=== PATIENT | female | born 1980 | race Caucasian/White ===

== ENCOUNTER → 2018-07-04 08:48 | Outpatient (CLI) | payer OTHER, SELFPAY ==
[2018-07-03 13:33] VITALS: BMI 39.4
--- NOTE | 2018-07-04 08:49 | US_ITS ---
STUDY: ABDOMINAL ULTRASOUND REASON FOR EXAM: Female, 38 years old. Nausea TECHNIQUE: Transabdominal ultrasound was performed with real-time and static godwin scale imaging. TECHNICAL QUALITY: Adequate. COMPARISON: November 29, 2016 CT abdomen and pelvis FINDINGS: Liver: The liver measures 14 cm. There is normal echogenicity of the liver. The bile ducts are within normal limits. There is hepatic color flow. The direction of portal flow is hepatopetal. There is no demonstrated mass lesion. Portal vein measurement: Gallbladder: Surgically absent Common Bile Duct (C.B.D.): The common bile duct measures 4 mm. Pancreas: Normal size of the head, body of the pancreas. There is normal echogenicity of the pancreas. There is no demonstrated pancreatic mass or cyst. Pancreatic tail not well visualized. Spleen: Normal size of the spleen. The spleen measures 9 cm. Right Kidney: Normal size of the right kidney. The right kidney measures 10 cm. Normal renal cortex. The right cortex measures 1.2 cm. There is no demonstrated renal mass or cyst. There is no right hydronephrosis. Left Kidney: Normal size of the left kidney. The left kidney measures 10.7 cm. Normal renal cortex. The left cortex measures 2.3 cm. There is no demonstrated renal mass or cyst. There is no left hydronephrosis. Aorta: Measures up to 2.1 cm. I.V.C.: The IVC is patent. There is no ascites. US/Abdomen Complete IMPRESSION: No acute disease Electronically Signed: Matt Talbert MD at 20:04 EDT , Service support ,
[2018-07-04 10:36] LABS: AST(SGOT) 13 U/L (15-37); Alanine Aminotransfer ALT/SGPT 18 U/L (13-56); Albumin, Serum 3.5 g/dL (3.2-5.0); Alkaline Phosphatase 74 U/L (45-117); Amylase 41 U/L (25-115); Bilirubin, Direct 0.08 mg/dL (0.00-0.30); Globulin 3.5 g/dL (2.2-4.2); Lipase 121 U/L (73-393)
== END ==
PROVIDERS: Referring Provider Surgery; Visit Provider Surgery
DX: R11.2 Nausea with vomiting, unspecified (principal)
CPT/HCPCS: 36415; 76700; 80076; 82150; 83690

== ENCOUNTER 2018-07-24 07:35 | Day surgery (SDC) | payer OTHER, SELFPAY ==
[2018-07-03 13:33] VITALS: BMI 39.4
[2018-07-24 08:07] VITALS: BP 106/80; PULSE 106; RESP 18; TEMP 36.8; O2SAT 99; BMI 40.4
[2018-07-24 08:12] LABS: Internal QC Validated? YES +Cl - CLEAR BKGD; Pregnancy, Urine Negative Negative
--- NOTE | 2018-07-24 09:00 | EGD_PTH ---
PATIENT: PAWAN TELLEZ LOC: EN U#:[id number] AGE/SX: 38/F ROOM: RE07/24/[address]: Dr. Ronen Schmidt MD : 1980 BED: DIS: 07/24/2018 SPEC #: [id number] RECD: 07/24/18 11:38 STATUS: PIA BRYAN #: [id number] SHALA: 07/24/18 09:[address]: Ronen Schmidt DEPT: SURGICAL PATHOLOGY RECD BY: Ritchie Wolfe ENTERED: 07/24/18 11:50 SP TYPE: EGD BIOPSY OTHR DR: Out of Town Doctor Tissues: A - Duodenum, NOS B - Gastric mucous membrane C - Stomach, NOS D - Esophageal mucous membrane Procedures: Special Stain Group II Surgery Specimen Level IV Alcian Blue/PAS (control) HEADER OPERATION: [place] PRE-OP DIAGNOSIS: History of intractable nausea TISSUE SUBMITTED: A - Biopsy duodenum, B - Biopsy gastric antrum, H. pylori and path, C - Biopsy body of stomach polyp, D - Biopsy distal esophagus MICROSCOPIC DIAGNOSIS A. Duodenum, biopsy: Fragments of duodenal mucosa, no pathologic diagnosis. B. Gastric antrum, biopsy: Mild gastritis. See microscopic description and comment. C. Body of stomach polyp, biopsy: Consistent with fundic gland polyp. D. Distal esophagus, biopsy: Fragments of gastroesophageal mucosa with chronic inflammation. Intestinal metaplasia (goblet cell metaplasia) is not identified. See comment. SJ:aubrey 07/27/18 COMMENT B. The results of immunohistochemistry for Helicobacter pylori will be reported separately ([id number]). D. Alcian blue/PAS stain with matched control is used in the evaluation of the specimen. The specimen predominantly consists of squamous mucosa. MICROSCOPIC DESCRIPTION Slides are reviewed. B. The specimen shows fragments of gastric mucosa with chronic inflammatory cell infiltrates in the lamina propria consisting of lymphocytes and plasma cells, consistent with mild chronic gastritis. GROSS DESCRIPTION A - Received in fixative is one container labeled with the patient's name and designated biopsy duodenum. The specimen consists of multiple irregular fragments of light sheets soft tissue that in aggregate measure 1.5 x 0.3 x 0.1 cm. The specimen is totally submitted in one cassette. B - Received in fixative is one container labeled with the patient's name and designated biopsy gastric antrum. The specimen consists of one irregular fragment of light sheets soft tissue that measures 0.5 x 0.5 x 0.1 cm. The specimen is totally submitted in one cassette. C - Received in fixative is one container labeled with the patient's name and designated biopsy body of stomach polyp. The specimen consists of one irregular fragment of light sheets soft tissue that measures 0.2 x 0.1 x 0.1 cm. The specimen is totally submitted in one cassette. D -Received in fixative is one container labeled with the patient's name and designated biopsy distal esophagus. The specimen consists of multiple irregular fragments of light sheets soft tissue that in aggregate measure 0.7 x 0.2 x 0.1 cm. The specimen is totally submitted in one cassette. / SJ:rg 07/24/18 TC:3 CPT: 94115 x4, 72751
--- NOTE | 2018-07-24 09:00 | IMM_PTH ---
PATIENT: PAWAN TELLEZ LOC: EN U#:[id number] AGE/SX: 38/F ROOM: RE07/24/[address]: Dr. Ronen Schmidt MD : 1980 BED: DIS: 07/24/2018 SPEC #: [id number] RECD: 07/24/18 12:47 STATUS: PIA BRYAN #: [id number] SHALA: 07/24/18 09:[address]: Ronen Schmidt DEPT: IMMUNOHISTOCHEMISTRY RECD BY: Radha Nieto ENTERED: 07/24/18 12:47 SP TYPE: IMMUNO OTHR DR: Out of Town Doctor Tissues: B - Stomach, NOS Procedures: H Pylori (initial) PHYSICIAN & INSTITUTION [place] [id number] SPECIMEN INFORMATION: Tissue Source: B - Gastric antrum biopsy Clinical Info: History of intractable nausea Specimen Number: [id number] CPT code: 30223 METHODOLOGY: Deparaffinized sections of prefer/formalin-fixed tissue or PAP/DQ stained slides are incubated with monoclonal/polyclonal antibodies/oligonucleotide probes. Localization is made via biotin free immunoperoxidase method. Appropriate controls are performed and reacted as expected. Results on target cell population are indicated in the following table: RESULTS: ANTIBODY / CLONE RESULT Block B H Pylori (polyclonal) negative These tests were developed and their performance characteristics determined by [facility]. They may not have been cleared or approved by the U.S. Food and Drug Administration. The FDA has determined that such clearance or approval is not necessary. INTERPRETATION: B. Gastric antrum, biopsy: Negative for Helicobacter pylori organisms. SJ:aubrey 07/28/18
[2018-07-24 10:09] VITALS: BP 106/80; BP 97/61; PULSE 85; RESP 16; TEMP 36.3; O2SAT 94
--- NOTE | 2018-07-24 10:11 | OP.ENDO_ITS ---
07/24/2018 Out Of [facility] Doctor Re : Upper GI endoscopy procedure for Jessica Mccarthy Dear [facility] Doctor This procedure was performed on Tuesday, July 24, 2018. My impressions and recommendations are as follows: Impressions : - Normal esophagus. Small hiatal hernia. - Z-line regular, 39 cm from the incisors. Biopsied. - A few gastric polyps. Resected and retrieved. - Erythematous mucosa in the antrum. Biopsied. - Normal examined duodenum. Biopsied. Recommendations : - Discharge patient to home. - Resume previous diet. - Continue present medications. - Telephone my office for pathology results in 1 week. My findings are described in the full procedure note, which is enclosed. If I can be of further assistance, please feel free to contact me at Doctor phone number(s): Work: . Sincerely, Ronen Schmidt MD 07/24/2018 10:11:13 AM This report has been signed electronically.
[2018-07-24 10:15] VITALS: BP 104/62; BP 106/80; PULSE 85; RESP 16; O2SAT 96
[2018-07-24 10:20] VITALS: BP 104/65; BP 106/80; PULSE 85; RESP 16; O2SAT 100
[2018-07-24 10:25] VITALS: BP 106/69; BP 106/80; PULSE 75; RESP 106; TEMP 35.9; O2SAT 97
[2018-07-24 11:00] VITALS: BP 106/80
== END 2018-07-24 11:00 | disposition home or self-care (01) ==
LOC: EN 07:37 → AC 07:38
PROVIDERS: Anesthesiology; Visit Provider Surgery
PROC: 0DJ08ZZ Inspection of Upper Intestinal Tract, Via Natural or Artificial Opening Endoscopic (ICD-10-PCS; CPT 43235; principal; 2018-07-24 08:55)
DX: K20.9 Esophagitis, unspecified (principal); K29.70 Gastritis, unspecified, without bleeding; K44.9 Diaphragmatic hernia without obstruction or gangrene; K31.7 Polyp of stomach and duodenum; Z79.899 Other long term (current) drug therapy; Z87.11 Personal history of peptic ulcer disease; Z85.828 Personal history of other malignant neoplasm of skin
CPT/HCPCS: 43239; 81025; 88305; 88313; 88342; J7120; J2405

== ENCOUNTER 2018-09-23 08:19 | Emergency (ER) | payer OTHER, SELFPAY ==
[2018-09-23 08:20] VITALS: BP 126/78; PULSE 115; RESP 20; TEMP 36.9; O2SAT 100; BMI 40.1
--- NOTE | 2018-09-23 08:22 | CT_ITS ---
STUDY: CT ABDOMEN AND PELVIS WITH CONTRAST REASON FOR EXAM: Female, 38 years old. Right lower quadrant pain. RADIATION DOSAGE (If Supplied By Facility): CTDIvol = ( 14.31 ) mGy, DLP = ( 1112.45 ) mGycm TECHNIQUE: Transaxial images were obtained from the dome of the diaphragm to the symphysis pubis without oral contrast. 100 IV Isovue 370 was administered. Sagittal and coronal images were reconstructed. Individualized dose optimization techniques were used for this CT. COMPARISON: Comparison is made with prior study November 29, 2016. FINDINGS: The visualized lung bases are unremarkable. The visualized portions of the heart are within normal limits. Normal liver. There are surgical clips in the gallbladder fossa consistent with a prior cholecystectomy. Normal spleen. Normal pancreas. Normal bilateral adrenal glands. Normal right kidney. Normal left kidney. Normal visualized stomach. Normal small intestine. Normal colon. The appendix is visualized and appears normal. Normal abdominal aorta. Normal inferior vena cava. Normal retroperitoneum. Normal urinary bladder. Follicles are seen in the left ovary. Normal abdominal wall. Normal osseous structures. CT/Abdomen/Pelvis W IV Cont ONLY IMPRESSION: Follicles are seen in the left ovary. Electronically Signed: Pranav Rasheed, at 9:20 EDT , Service support ,
--- NOTE | 2018-09-23 08:28 | ED.DCSUM_ITS ---
History of Present Illness Chief Complaint: Abd Pain Informant: Patient, [employer]ed [employer] Repairer Onset: Today Context: - - Noted upon awakening Timing: Continuous Quality: Pain Location: Proximity McBurney's point Current Severity: Mild Maximum Severity: Moderate Worsened by: Walking Relieved by: Supine better Associated Symptoms: Nausea and loss of appetite Narrative: Patient is a 38-year-old female who presents by ambulance with right lower quadrant abdominal pain that is in the proximity McBurney's point. She noted discomfort this morning upon awakening. She reports nausea and has no appetite. Normally has breakfast. She did not have breakfast this morning. She denies fever or chills. She denies dysuria, frequency, urgency or hematuria. Last normal menstrual cycle 2 weeks ago. Patient states she is not sexually active. She is never been . She does have history of renal/ureteral lithiasis. She states this is different. She denies vaginal bleeding, vaginal discharge. There is no history of ovarian cyst or endometriosis. She denies back pain. Prior similar symptoms: No Recent Illness/Hospitalization: No - Past Medical History (1) Gastric ulcer Status: Acute (2) Hiatal hernia Status: Acute (3) Migraines Status: Acute (4) Pseudotumor cerebri Status: Acute (5) Restless leg syndrome Status: Acute Past Medical History - Allergies and Home Meds Allergies/Adverse Reactions: Allergies nitrofurantoin [From Macrobid] Allergy (Unknown, Verified 09/23/18 08:26) Unknown oxycodone [From Percocet] Allergy (Unknown, Verified 09/23/18 08:26) Unknown prednisone Allergy (Unknown, Verified 09/23/18 08:26) Unknown scopolamine Allergy (Unknown, Verified 09/23/18 08:26) Unknown ketorolac tromethamine [From Toradol] Allergy (Verified 09/23/18 08:26) Other morphine Allergy (Verified 09/23/18 08:26) Other ropinirole HCl [From Requip] Allergy (Verified 09/23/18 08:26) Other sumatriptan [From Imitrex] Allergy (Verified 09/23/18 08:26) Shortness of breath sumatriptan succinate [From Imitrex] Allergy (Verified 09/23/18 08:26) Shortness of breath Latex, Natural Rubber Adverse Reaction (Verified 09/23/18 08:26) Rash Primary Care Physician: [facility] Doctor,Out of [Primary Care Provider] - Prior records reviewed: Yes Surgical History: cholecystectomy Lives: Alone Smoking Status: Never smoker Alcohol: None Drugs: None Review of Systems General: Denies: Chills, Fever, Malaise, Sweats Eyes: Denies: Blurred Vision - bilaterally ENT: Denies: Bilateral ear pain, Rhinorrhea, Sore throat Cardiovascular: Denies: Chest pain, Palpitations Respiratory: Denies: Dyspnea, Cough, Dyspnea on exertion Gastrointestinal: Reports: Abdominal pain, Nausea. Denies: Vomiting, Diarrhea, Constipation, Melena, Hematochezia, -, - Genitourinary: Denies: Dysuria, Hematuria, Frequency Musculoskeletal: Denies: Myalgias, Arthralgias, Neck pain, Back pain, Swelling, Extremity Pain, -, - Skin: Denies: Rash, Wounds Neurological: Denies: Headache, Weakness, Numbness Hematologic: Denies: Easy bruising, Easy bleeding Physical Exam Vital Signs/Narrative: Vital Signs Temp Pulse Resp BP Pulse Ox 09/23/18 08:20 98.4 F 115 H 20 H 126/78 H 100 Inital Vital Signs reviewed: Yes General: Well nourished, Well developed, Obese, No Acute Distress Head: Normocephalic, Atraumatic Eyes: Perrl, EOMI. Negative for: Pale conjunctiva, Scleral icterus, - ENT: Moist mucous membranes, No rhinorrhea Neck: Supple, Nontender, No lymphadenopathy, No JVD, - Cardiovascular: Regular rhythm, No murmurs, Normal S1, Normal S2, Tachycardia Respiratory: No distress, CTA bilaterally, Chest nontender Abdomen: Soft, Nondistended, No masses, Tender, Guarding, Rebound tenderness - Patient does have percussion tenderness., Hypoactive bowel sounds. Negative for: Nontender, Normal bowel sounds, Ventral hernia, Umbilical hernia, Rovsig's sign Rectal: Deferred Back: Nontender, Normal Inspection. Negative for: CVA tenderness Extremities: Nontender, No edema Skin: Normal color, No rash, No Trauma. Negative for: Cyanosis, Diaphoresis, Jaundice Neurological: Alert, Oriented x3, Cranial nerves II-XII grossly intact, Normal Strength, Normal Sensation Psychological: - - Affect is flat Diagnostic/Tx/Re-eval Impressions Abdomen/Pelvis CT 06/12/19 08:22 IMPRESSION: Follicles are seen in the left ovary. Electronically Signed: Pranav Rasheed, at 9:20 EDT , Service support , 09/23/18 08:22 Abdomen/Pelvis W IV Cont ONLY [CT] Stat Laboratory Results 09/23/18 09/23/18 09/23/18 08:25 08:25 09:34 WBC 6.7 RBC 4.31 Hgb 12.4 Hct 39.0 MCV 90.5 MCH 28.8 MCHC 31.8 L RDW 14.1 RDW Differential 46.5 H Plt Count 281 MPV 9.9 Immature Gran % (Auto) 0.000 Neut % (Auto) 59.1 Lymph % (Auto) 25.7 Union % (Auto) 13.2 H Eos % (Auto) 1.9 Baso % (Auto) 0.1 Absolute Neuts (auto) 4.0 Absolute Lymphs (auto) 1.73 Total Counted Not Reportable Sodium 145 Potassium 3.5 Chloride 116 H Carbon Dioxide 20.0 L Anion Gap 9 BUN 18 Creatinine 0.80 Estim Creat Clear Calc 83.14 Est GFR (MDRD) Af Amer 104 Est GFR (MDRD) Non-Af 86 BUN/Creatinine Ratio 22.6 H Glucose 93 Calcium 8.5 Urine Color Yellow Urine Clarity Sl. Cloudy Urine pH 7.0 Ur Specific Bertrand 1.010 Urine Protein Negative Urine Glucose (UA) Normal Urine Ketones Negative Urine Occult Blood Negative Urine Nitrite Negative Urine Bilirubin Negative Urine Urobilinogen Normal Ur Leukocyte Esterase 25 H Urine RBC 0 SEEN Urine WBC 0-5 SEEN Ur Squamous Epith Cells 0-5 SEEN Amorphous Sediment 2+ Urine Bacteria 1+ Urine Mucus 0 SEEN Urine reveals bacteria however there is no pyuria and nitrite negative with leukoesterase slightly positive. This is not consistent with urinary tract infe ction especially since patient has no symptoms. - Medical Decision Making With right lower quadrant pain with nausea anorexia need to evaluate for appendicitis. Also in the differential is mesenteric adenitis, ovarian cyst, endometriosis atypical presentation for ureterolithiasis and urinary tract infection. IV was established. She received Zofran and Toradol for her nausea and discomfort. Appropriate blood work was ordered as well as CT of the abdomen pelvis with IV contrast. With normal white count and normal appearing appendix this may represent a false negative test. Since patient's symptoms are less than 12 hours and she is reliable will discharge to home with follow-up in 24 hours. ED Disposition - Plan for ED Patient: Disposition: Home or Assisted Living Diagnosis: Acute abdominal pain in right lower quadrant Instructions: ED Abdominal Pain Appendx Poss Referrals: Town Doctor,Out of [Primary Care Provider] - 1 Day for another exam
[2018-09-23 08:32] LABS: Absolute Lymphocyte Count 1.73 X10^3/ul (0.83-4.51); Basophil# 0.01 X10^3/uL; Basophil% 0.1 % (0-1); Eosinophil# 0.13 X10^3/uL; Eosinophils% 1.9 % (0-5); Hemoglobin 12.4 g/dl (12.0-15.0); Lymphocyte # 1.73 X10^3/ul (4.0); Lymphocyte % 25.7 % (19-41); Mean Corp Hgb Conc 31.8 g/gl (32-36); Mean Corpuscular Hgb 28.8 pg (27.0-32.0); Mean Corpuscular Volume 90.5 fL (81-99); Mean Platelet Vol. 9.9 fl (6.2-12.0); Monocyte# 0.89 X10^3/uL; Monocyte% 13.2 % (0-10); Neutrophil # 3.97 X10^3/uL (2.7-7.7); Neutrophil % 59.1 % (47-70); Platelet Count 281 K/mm3 (150-450); RBC Distribution Width CV 14.1 % (11.6-14.6); RBC Distribution Width SD 46.5 fl (35.1-43.9); Red Blood Count 4.31 M/mm3 (4.2-5.4); White Blood Count 6.7 K/mm3 (4.4-11.0)
[2018-09-23 08:34] LABS: POSITIVE COUNT NO; POSITIVE DIFFERENTIAL NO; POSITIVE MORPHOLOGY NO
[2018-09-23] MEDS: Ketorolac 15 MG/ML Vial IV (08:36)
[2018-09-23] MEDS: Ondansetron 4 MG/2 ML Vial IV (08:36)
[2018-09-23] MEDS: 0.9% Normal Saline 1,000 ML 250 ML IV (08:36)
[2018-09-23 08:45] LABS: Anion Gap 9 (5-15); BUN 18 mg/dL (7-18); BUN/Creat Ratio 22.6 RATIO (10-20); Calcium,Total 8.5 mg/dL (8.5-10.1); Chloride 116 mmol/L (98-107); EST Glomerular Filtration Rate 86 mL/min (>60); Est Glom Filt Rate - Afr Amer 104 mL/min (>60); Estimated Creatinine Clearance 83.14 ml/min; Glucose 93 mg/dL (74-106); Potassium 3.5 mmol/L (3.5-5.1); Sodium Level 145 mmol/L (136-145)
[2018-09-23 09:38] LABS: Mucous, Urine 0 SEEN /hpf (<or=2+); Red Blood Cells-Urine 0 SEEN /hpf (0-5)
[2018-09-23 09:44] LABS: Color, Urine Yellow (Yellow); Glucose, Dipstick Normal (Normal); Ketone-Dipstick Negative (Negative); Leukocyte Esterase-Dipstick 25 /ul (Negative); Nitrite-Dipstick Negative (Negative); Occult Blood-Urine Negative /ul (Negative); Protein-Dipstick Negative (Negative); Urine Bilirubin Dipstick Negative (Negative); Urine Clarity Sl. Cloudy (Clear); Urine Urobilinogen Normal (Normal)
[2018-09-23 09:50] LABS: Amorphous Sediment 2+; Bacteria 1+ /hpf (None Seen); Squamous Epithelial Cells - UA 0-5 SEEN /hpf (5-10); White Blood Cells 0-5 SEEN /hpf (0-5)
[2018-09-23 10:52] VITALS: BP 135/74; PULSE 69; RESP 15; O2SAT 98
--- NOTE | 2018-09-23 10:54 | ED.RN ---
PT IS VERY TEARFUL UPON DISCHARGE. DISCUSSED THE POSSIBLE CAUSES OF THE PAIN AND RE INTREATTED THE IMPORTANCE OF FOLLOW UP TOMORROW. PT STILL NOT HAPPY. AGAIN TRIED TO COMFORT PT'S CONCERNS. PT AND MOTHER STATED DR GARCIA WAS BRIEF AND QUICK AND THEY WERE NOT HAPPY. DR GARCIA NOTIFIED AND HE RE VISITED THE PT AND HER MOM IN A ATTEMPT TO REASSURE THE PATIENT.
== END 2018-09-23 11:03 | disposition home or self-care (01) ==
PROVIDERS: Emergency Provider Emergency Medicine
DX: R10.31 Right lower quadrant pain (principal); R11.0 Nausea; K44.9 Diaphragmatic hernia without obstruction or gangrene; G93.2 Benign intracranial hypertension; G25.81 Restless legs syndrome; G43.909 Migraine, unspecified, not intractable, without status migrainosus; Z79.899 Other long term (current) drug therapy; Z88.1 Allergy status to other antibiotic agents; Z88.5 Allergy status to narcotic agent; Z87.442 Personal history of urinary calculi; Z87.19 Personal history of other diseases of the digestive system; Z90.49 Acquired absence of other specified parts of digestive tract
CPT/HCPCS: 74177; 80048; 81001; 85025; 96361; 96374; 96375; 99285; Q9967; J2405

== ENCOUNTER 2021-09-26 13:06 | Emergency (ER) | payer OTHER, SELFPAY ==
[2021-09-26 13:07] VITALS: BP 130/108; PULSE 121; RESP 18; TEMP 36.4; O2SAT 100; BMI 41.3
--- NOTE | 2021-09-26 13:33 | ED.RN ---
PT STATES SHE IS CURRENTLY ON BACTRIUM FOR UTI X 8 DAYS
--- NOTE | 2021-09-26 13:56 | CT_ITS ---
STUDY: CT ABDOMEN AND PELVIS WITHOUT CONTRAST REASON FOR EXAM: Female, 41 years old. Kidney Stone. Right lower quadrant abdominal pain and nausea. RADIATION DOSAGE (If Supplied By Facility): CTDIvol = ( 21.68 ) mGy, DLP = ( 1018.39 ) mGycm TECHNIQUE: Transaxial images were obtained from the dome of the diaphragm to the symphysis pubis without oral contrast, and without intravenous contrast. Sagittal and coronal images were reconstructed. Individualized dose optimization techniques were used for this CT. COMPARISON: Comparison is made with prior study dated 09/23/2018. FINDINGS: The visualized lung bases are unremarkable. The visualized portions of the heart are within normal limits. Normal liver. There are surgical clips in the gallbladder fossa consistent with a prior cholecystectomy. Normal spleen. Normal pancreas. Normal bilateral adrenal glands. Mild degree of right hydronephrosis and mild right hydroureter due to a tiny calculus at the right ureterovesical junction. 2 mm nonobstructive calculus in the midpole calyx of the left kidney. Normal visualized stomach. Normal small intestine. Normal colon. The appendix is visualized and appears normal. Normal abdominal aorta. Normal inferior vena cava. Normal retroperitoneum. Normal urinary bladder. Normal abdominal wall. Normal osseous structures. CT/Abdomen/Pelvis without Cont IMPRESSION: Findings suggestive of a tiny calculus at the right ureterovesical junction causing mild degree of right hydronephrosis and right hydroureter. Nonobstructive calculus in the left kidney. Electronically Signed: Pranav Rasheed MD at 14:37 EDT ,
--- NOTE | 2021-09-26 13:57 | EX.ED.DYSGE1 ---
HPI History of Present Illness Chief Complaint: Abd Pain Informant: patient Narrative Narrative: 41-year-old female presents to the emergency department with right lower quadrant abdominal pain. Patient states that she has a history of kidney stones. Her pain began Approximately 45 minutes ago and radiates to the back. She states it feels similar to kidney stones. She has not had any hematuria. She notes that she is currently being treated with Bactrim for a urinary tract infection. No vomiting or diarrhea. She denies risk of . [facility] Medical History (Updated 09/26/21 @ 14:[address] Rogelio Torres, ) Cyst of pituitary gland Gastric ulcer Hiatal hernia Migraines Nausea Peptic ulcer Pseudotumor cerebri Restless leg syndrome Seasonal allergies Home Medications acetazolamide 250 mg tablet 250 mg PO DAILY 11/28/16 [History Last Taken 07/24/18 06:30] amitriptyline 25 mg tablet 75 mg PO QHS 11/28/16 [History Last Taken 11/28/16] fexofenadine 180 mg tablet 180 mg PO DAILY 11/28/16 [History Last Taken 11/28/16] topiramate 200 mg tablet 400 mg PO QHS 11/28/16 [History Last Taken 11/28/16] ascorbic acid (vitamin C) 250 mg tablet 250 mg PO DAILY 07/03/18 [History Last Taken Unknown] cholecalciferol (vitamin D3) 25 mcg (1,000 unit) capsule 1,000 unit PO DAILY 07/03/18 [History Last Taken Unknown] galcanezumab-gnlm 120 mg/mL subcutaneous pen injector (Emgality Pen) 120 mg subcut QMONTH 07/03/18 [History Last Taken Unknown] onabotulinumtoxinA 100 unit solution for injection (Botox) 200 unit IM Q3-4M MIGRAINES 07/03/18 [History Last Taken Unknown] potassium 99 mg tablet 99 mg PO DAILY 07/03/18 [History Last Taken Unknown] promethazine 25 mg tablet 25 mg PO Q6H PRN Nausea 07/03/18 [History Last Taken Unknown] topiramate 200 mg tablet (Topamax) 200 mg PO DAILY 07/03/18 [History Last Taken 07/24/18 06:30] qexzyopzqo-jdqaseuqqefyr-dqgcwfmf 50 mg-300 mg-40 mg capsule 1 cap PO Q8H 10/09/18 [History Last Taken Unknown] naproxen sodium 220 mg capsule (Aleve) 220 mg PO BID 10/09/18 [History Last Taken Unknown] hydrocodone-acetaminophen 5-325mg 5mg-325mg 1 tab PO Q6H PRN PRN Pain 3 days #12 TABLETS 09/26/21 [Rx Last Taken Unknown] sulfamethoxazole 800 mg-trimethoprim 160 mg tablet tab 09/26/21 [History Last Taken Unknown] Allergy/AdvReac Type Severity Reaction Status Date / Time nitrofurantoin Allergy Unknown Unknown Verified 09/26/21 13:06 [From Macrobid] oxycodone [From Percocet] Allergy Unknown Unknown Verified 09/26/21 13:06 prednisone Allergy Unknown Unknown Verified 09/26/21 13:06 scopolamine Allergy Unknown Unknown Verified 09/26/21 13:06 eptinezumab-jjmr Allergy Other Verified 09/26/21 13:07 [From Vyepti] ketorolac tromethamine Allergy Other Verified 09/26/21 13:06 [From Toradol] morphine Allergy Other Verified 09/26/21 13:06 ropinirole HCl [From Requip] Allergy Other Verified 09/26/21 13:06 sumatriptan [From Imitrex] Allergy Shortness Verified 09/26/21 13:06 of breath sumatriptan succinate Allergy Shortness Verified 09/26/21 13:06 [From Imitrex] of breath Latex, Natural Rubber AdvReac Rash Verified 09/26/21 13:06 Family History Mother Diabetes Hypertension Sister Asthma Hypertension Father Hypertension Arthritis Colon cancer Prostate cancer Surgical History History of cholecystectomy History of oral surgery Hx of arthroscopic knee surgery Hx of eye surgery [place] teeth extracted Social History Smoking Status: Never smoker second hand exposure: No alcohol intake: never substance use type: does not use caffeine: Yes what type of physical activity do you participate in: walking frequency: 1-2 times per week seatbelt use: always do you feel safe at home: Yes additional social history: Single-Patient works at [employer]-PT ROS ROS ED Constitutional Constitutional ED: Denies chills or weight loss Eyes Eyes: Denies change in vision or diplopia ENT ENT ED: Denies ear pain, rhinorrhea or sore throat Cardiovascular Cardiovascular: Denies chest pain, orthopnea, palpitations or racing heartbeat Respiratory/Chest Respiratory/Chest: Denies cough, dyspnea or orthopnea Gastrointestinal Gastrointestinal: Reports abdominal pain; Denies diarrhea, nausea or vomiting Genitourinary Genitourinary ED: Denies dysuria, hematuria or urinary frequency Musculoskeletal Musculoskeletal: Denies arthralgias or myalgias Integumentary Denies abscess or rash Neurologic Neurologic: Reports headache(s); Denies weakness Psychiatric Psychiatric: Denies anxiety, depression, suicidal ideation or suicidal thoughts Endocrine Endocrinology: Denies polydipsia, polyphagia or polyuria Allergic/Immunologic Allergic/Immunologic ED: Denies mouth swelling, tongue swelling or urticaria EXAM Physical Exam Narrative Exam Narrative: The patient appears in pain. She is holding her right lower quadrant and side and is unable to find a position of comfort. Const Vital Signs: 09/26/21 13:07 Temperature 97.6 F L Temperature Source Temporal Pulse Rate 121 H Respiratory Rate 18 Blood Pressure 130/108 H Blood Pressure Mean 115 Pulse Ox 100 Oxygen Delivery Method Room Air Positive well nourished, well developed and obese General Appearance ED: well developed Nutritional Appearance: obese HEENT Reports normocephalic, head/scalp atraumatic and moist mucous membranes Eyes PERRL and EOMs intact bilaterally Neck no lymphadenopathy, supple and no JVD Resp normal respiratory effort and clear to auscultation bilaterally Cardio regular rate, regular rhythm and no murmurs GI normal to inspection, nondistended, normoactive bowel sounds and non-tender Palpation: soft Back/Spine no CVA tenderness and normal ROM Extremity normal to inspection General Extremety ED: Negative for edema General Extremity: Negative for edema Neuro oriented x3 and CN's II-XII intact bilaterally Sensorium / Orientation: alert Motor Exam: strength 5/5 throughout Psych mental status grossly normal Mood & Affect: Negative for depressed or tearful Skin no rashes or lesions noted and no wounds MDM MDM MDM Narrative Medical decision making narrative: Patient received Dilaudid and IV fluids. White count 11.7. Creatinine 1.07. Urinalysis shows 5-[address] is demonstrate a distal ureteral known on the right with hydronephrosis and hydroureter. Patient will be discharged home with pain and nausea medication. Return if worsening or concerns Lab Data Attestation: I reviewed the patient's lab results. Labs: Laboratory Results - last 24 hr 09/26/21 09/26/21 09/26/21 13:40 13:40 14:00 WBC 11.7 H RBC 4.45 Hgb 12.4 Hct 40.1 MCV 90.1 MCH 27.9 MCHC 30.9 L RDW Std Deviation 47.6 H RDW Coeff of [place] 14.4 Plt Count 336 MPV 9.5 Immature Gran % (Auto) 0.900 Neut % (Auto) 73.6 H Lymph % (Auto) 17.9 L [place] % (Auto) 7.1 Eos % (Auto) 0.3 Baso % (Auto) 0.2 Absolute Neuts (auto) 8.6 H Absolute Lymphs (auto) 2.10 Nucleated RBC % 0 Sodium 140 Potassium 3.0 L Chloride 109 H Carbon Dioxide 23.0 Anion Gap 8 BUN 16 Creatinine 1.07 H Estim Creat Clear Calc 60.35 Est GFR (MDRD) Af Amer 73 Est GFR (MDRD) Non-Af 60 BUN/Creatinine Ratio 15.0 Glucose 106 Calcium 8.8 Urine Color Yellow Urine Clarity Sl. Cloudy Urine pH 5.0 Ur Specific [place] 1.025 Urine Protein 15 H Urine Glucose (UA) Normal Urine Ketones Negative Urine Occult Blood 50 H Urine Nitrite Negative Urine Bilirubin Negative Urine Urobilinogen Normal Ur Leukocyte Esterase Negative Urine RBC 5-10 SEEN Urine WBC 0-5 SEEN Ur Squamous Epith Cells 0-5 SEEN Calcium Oxalate Crystal RARE Urine Bacteria RARE Urine Mucus RARE Urine Test 09/26/21 14:00 WBC RBC Hgb Hct MCV MCH MCHC RDW Std Deviation RDW Coeff of [place] Plt Count MPV Immature Gran % (Auto) Neut % (Auto) Lymph % (Auto) [place] % (Auto) Eos % (Auto) Baso % (Auto) Absolute Neuts (auto) Absolute Lymphs (auto) Nucleated RBC % Sodium Potassium Chloride Carbon Dioxide Anion Gap BUN Creatinine Estim Creat Clear Calc Est GFR (MDRD) Af Amer Est GFR (MDRD) Non-Af BUN/Creatinine Ratio Glucose Calcium Urine Color Urine Clarity Urine pH Ur Specific [place] Urine Protein Urine Glucose (UA) Urine Ketones Urine Occult Blood Urine Nitrite Urine Bilirubin Urine Urobilinogen Ur Leukocyte Esterase Urine RBC Urine WBC Ur Squamous Epith Cells Calcium Oxalate Crystal Urine Bacteria Urine Mucus Urine Test Negative Radiography Diagnostic Testing: Clinical Impression(s) from Imaging Studies Abdomen/Pelvis CT 09/26/21 13:56 IMPRESSION: Findings suggestive of a tiny calculus at the right ureterovesical junction causing mild degree of right hydronephrosis and right hydroureter. Nonobstructive calculus in the left kidney. Electronically Signed: Pranav Rasheed MD at 14:37 EDT , Discharge Plan Triage Chief Complaint: Abd Pain ED Provider: Rogelio Torres Dx/Rx/DC Orders Clinical Impression: Ureterolithiasis Instructions: ED Kidney Stone w/ Colic Prescriptions: New hydrocodone-acetaminophen [hydrocodone-acetaminophen] 5-325 mg tablet 1 tab PO Q6H PRN PRN (Reason: Pain) 3 Days Qty: 12 0RF No Action topiramate [Topamax] 200 mg tablet 200 mg PO DAILY cholecalciferol (vitamin D3) 1,000 unit capsule 1,000 unit capsule 1,000 unit PO DAILY potassium 99 mg tablet 99 mg PO DAILY ascorbic acid (vitamin C) 250 mg tablet 250 mg PO DAILY promethazine 25 mg tablet 25 mg PO Q6H PRN (Reason: Nausea) onabotulinumtoxinA 100 unit solution for injection 100 unit recon soln 200 unit IM Q3-4M Emgality Pen 120 mg/mL pen injector 120 mg SC QMONTH naproxen sodium [Aleve] 220 mg capsule 220 mg PO BID neyuqbfxab-yhvvcrcadijjw-setj 50-300-40 mg capsule 1 cap PO Q8H acetazolamide 250 MG tablet 250 mg PO DAILY fexofenadine 180 MG tablet 180 mg PO DAILY amitriptyline 25 MG tablet 75 mg PO QHS Label Comments: TAKE ONE-HALF TABLET DAILY WITH SUPPER FOR 7 DAYS, ONE TABLET EVERY EVENING FOR 7 DAYS, THEN TWO TABLETS EVERY EVENING thereafter topiramate 200 MG tablet 400 mg PO QHS sulfamethoxazole-trimethoprim 800-160 mg tablet Label Comments: TAKE 1 TABLET BY MOUTH TWICE DAILY FOR 10 DAYS Primary Care Provider: ANDREA ANGULO Referrals: [facility] Doctor,Out of [NON-STAFF] - Disposition Disposition: Home, Self Care
[2021-09-26 14:04] LABS: Absolute Neutrophil Count 8.6 X10^3/uL (2.0-7.7); Basophil# 0.02 X10^3/uL; Basophil% 0.2 % (0-1); Eosinophil# 0.03 X10^3/uL; Eosinophils% 0.3 % (0-5); Hematocrit 40.1 % (37-47); Hemoglobin 12.4 g/dL (12.0-15.0); Lymphocyte % 17.9 % (19-41); Mean Corp Hgb Conc 30.9 g/dL (32-36); Mean Corpuscular Hgb 27.9 pg (27.0-32.0); Mean Corpuscular Volume 90.1 fL (81-99); Mean Platelet Vol. 9.5 fl (6.2-12.0); Monocyte# 0.83 X10^3/uL; Monocyte% 7.1 % (0-10); NRBC Flagged by Analyzer 0 % (0-5); Neutrophil # 8.62 X10^3/uL (2.7-7.7); Neutrophil % 73.6 % (47-70); Platelet Count 336 K/mm3 (150-450); RBC Distribution Width CV 14.4 % (11.6-14.6); RBC Distribution Width SD 47.6 fl (35.1-43.9); Red Blood Count 4.45 M/mm3 (4.2-5.4); White Blood Count 11.7 K/mm3 (4.4-11.0)
[2021-09-26] MEDS: HYDROmorphone 1 MG/ML Syringe IV ×2 (14:07→15:16)
[2021-09-26] MEDS: Ondansetron 4 MG/2 ML Vial IV (14:07)
[2021-09-26 14:10] LABS: Color, Urine Yellow (Yellow); Glucose, Dipstick Normal (Normal); Ketone-Dipstick Negative (Negative); Leukocyte Esterase-Dipstick Negative /ul (Negative); Nitrite-Dipstick Negative (Negative); Occult Blood-Urine 50 /ul (Negative); Protein-Dipstick 15 mg/dl (Negative); Specific Gravity, Urine 1.025 (1.002-1.030); Urine Bilirubin Dipstick Negative (Negative); Urine Clarity Sl. Cloudy (Clear); Urine Urobilinogen Normal (Normal)
[2021-09-26 14:17] LABS: Bacteria RARE /hpf (None Seen); Calcium Oxalate Crystals Ur RARE /hpf (<or=2+); Mucous, Urine RARE /hpf (<or=2+); Red Blood Cells-Urine 5-10 SEEN /hpf (0-5); Squamous Epithelial Cells - UA 0-5 SEEN /hpf (5-10); White Blood Cells 0-5 SEEN /hpf (0-5)
[2021-09-26 14:18] LABS: Anion Gap 8 (5-15); BUN 16 mg/dL (7-18); Calcium,Total 8.8 mg/dL (8.5-10.1); Chloride 109 mmol/L (98-107); Creatinine, Serum 1.07 mg/dL (0.55-1.02); EST Glomerular Filtration Rate 60 mL/min (>60); Est Glom Filt Rate - Afr Amer 73 mL/min (>60); Estimated Creatinine Clearance 60.35 ml/min; Glucose 106 mg/dL (74-106); Sodium Level 140 mmol/L (136-145)
[2021-09-26 14:29] LABS: Internal QC Validated? YES +Cl - CLEAR BKGD
[2021-09-26 14:33] LABS: Pregnancy, Urine Negative Negative
[2021-09-26 15:19] VITALS: PULSE 73; RESP 19; O2SAT 99
== END 2021-09-26 15:21 | disposition home or self-care (01) ==
PROVIDERS: Emergency Provider Emergency Medicine; Visit Provider Emergency Medicine
DX: N13.6 Pyonephrosis (principal); E66.9 Obesity, unspecified; Z87.442 Personal history of urinary calculi
CPT/HCPCS: 74176; 80048; 81001; 81025; 85025; 96374; 96375; 96376; 99283; J7030; A4216; J2405

== ENCOUNTER → 2021-09-26 | Outpatient (CLI) | payer OTHER, SELFPAY ==
[2021-09-26 11:33] LABS: EXAGEN MAILED SPECIMEN
[2021-09-26 12:23] LABS: International Normalized Ratio 1.1; Prothrombin Time (Protime)PT. 13.4 SECONDS (11.7-14.9)
[2021-09-26 12:24] LABS: Partial Thromboplast Time 25.6 Seconds (24.1-36.2)
[2021-09-26 12:34] LABS: Erythrocyte Sedimentation Rate 11 mm/hr (0-30)
[2021-09-26 12:35] LABS: Absolute Lymphocyte Count 2.52 X10^3/uL (0.83-4.51); Absolute Neutrophil Count 9.6 X10^3/uL (2.0-7.7); Basophil# 0.03 X10^3/uL; Basophil% 0.2 % (0-1); Eosinophil# 0.02 X10^3/uL; Eosinophils% 0.2 % (0-5); Hematocrit 40.6 % (37-47); Hemoglobin 12.8 g/dL (12.0-15.0); Lymphocyte # 2.52 X10^3/ul (0.83-4.51); Lymphocyte % 19.1 % (19-41); Mean Corp Hgb Conc 31.5 g/dL (32-36); Mean Corpuscular Hgb 28.5 pg (27.0-32.0); Mean Corpuscular Volume 90.4 fL (81-99); Mean Platelet Vol. 9.9 fl (6.2-12.0); Monocyte# 0.99 X10^3/uL; Monocyte% 7.5 % (0-10); NRBC Flagged by Analyzer 0 % (0-5); Neutrophil # 9.55 X10^3/uL (2.7-7.7); Neutrophil % 72.4 % (47-70); Platelet Count 347 K/mm3 (150-450); RBC Distribution Width CV 14.6 % (11.6-14.6); RBC Distribution Width SD 48.2 fl (35.1-43.9); Red Blood Count 4.49 M/mm3 (4.2-5.4); White Blood Count 13.2 K/mm3 (4.4-11.0)
[2021-09-26 12:39] LABS: ALB/GLOB Ratio 1.1 RATIO (0.9-2.4); AST(SGOT) 11 U/L (15-37); Alanine Aminotransfer ALT/SGPT 28 U/L (13-56); Albumin, Serum 3.8 g/dL (3.2-5.0); Alkaline Phosphatase 51 U/L (45-117); Anion Gap 8 (5-15); BUN 14 mg/dL (7-18); BUN/Creat Ratio 16.2 RATIO (10-20); Calcium,Total 8.8 mg/dL (8.5-10.1); Chloride 108 mmol/L (98-107); Creatinine, Serum 0.87 mg/dL (0.55-1.02); EST Glomerular Filtration Rate 77 mL/min (>60); Est Glom Filt Rate - Afr Amer 93 mL/min (>60); Globulin 3.4 g/dL (2.2-4.2); Glucose 89 mg/dL (74-106); Potassium 3.3 mmol/L (3.5-5.1); Protein, Total 7.2 g/dL (6.4-8.2); Sodium Level 140 mmol/L (136-145)
[2021-09-26 12:40] LABS: CRP < 2.90 mg/L (0.0-3.0)
[2021-09-26 13:20] LABS: Hepatitis B Surface Antibody Reactive; Hepatitis B Surface Antigen Non-Reactive (Nonreactive); Hepatitis C Antibody Non-Reactive (Nonreactive)
[2021-10-01 22:08] LABS: Dilute Prothrombin Time (dPT) 39.2 sec (0.0-47.6); Dilute Russell Viper Venom 38.2 sec (0.0-47.0); Hexagonal Phase Phospholipid 5 sec (0-11); PTT-LA 28.8 sec (0.0-51.9); Thrombin Time 18.6 sec (0.0-23.0); dPT Confirm Ratio 1.07 Ratio (0.00-1.34)
[2021-10-02 07:42] LABS: HLA B27 Negative (.); Interpretation Comment: (.)
== END | disposition home or self-care (01) ==
LOC: MTLAB 10:30
PROVIDERS: Referring Provider Internal Medicine Rheumatology; Visit Provider Internal Medicine Rheumatology
DX: M06.4 Inflammatory polyarthropathy (principal); I77.6 Arteritis, unspecified; R76.8 Other specified abnormal immunological findings in serum; H43.89 Other disorders of vitreous body; K21.9 Gastro-esophageal reflux disease without esophagitis; R00.0 Tachycardia, unspecified; G43.909 Migraine, unspecified, not intractable, without status migrainosus; G25.81 Restless legs syndrome; J30.2 Other seasonal allergic rhinitis; M21.42 Flat foot [pes planus] (acquired), left foot; M21.41 Flat foot [pes planus] (acquired), right foot
CPT/HCPCS: 36415; 80053; 81374; 85025; 85598; 85610; 85652; 85730; 86140; 86706; 86803; 87340

== ENCOUNTER → 2023-02-14 | Outpatient (CLI) | payer OTHER, SELFPAY | END | disposition home or self-care (01) | DX: B39.9 Histoplasmosis, unspecified (principal); T37.8X5A Adverse effect of other specified systemic anti-infectives and antiparasitics, initial encounter | CPT/HCPCS: 36415 ==